=== PATIENT | female | born 1975 | race Two or more races ===

== ENCOUNTER → 2016-09-27 | Outpatient (CLI) | payer BC, OTHER ==
[~2016-09-27] MED LIST: LABE100T3 PO; PREN1TAB27 PO
--- NOTE | 2016-09-27 15:40 | RAD ---
DATE: 09/27/2016: EXAM: DIGITAL SCREEN BILAT W/CAD HISTORY: Routine screening COMPARISON: Baseline study This study was interpreted with the benefit of Computerized Aided Detection (CAD). FINDINGS: There are scattered fibroglandular densities in both breasts. There is a small area of asymmetrically increased density in the upper outer quadrant of the right breast compared to the left. The fibroglandular pattern is otherwise unremarkable. Minimal benign type calcification is present. No suspicious microcalcification is seen. Benign-appearing lymph node type densities are present in the axillary regions. IMPRESSION: Asymmetric right breast opacity. Diagnostic mammograms to include spot compression and rolled cc views are suggested for further evaluation. If an area of suspicion persists, sonographic evaluation would be indicated. BI-RADS CATEGORY: 0 INCOMPLETE: NEEDS ADDITIONAL IMAGING EVALUATION AND/OR PRIOR MAMMOGRAMS FOR COMPARISON. RECOMMENDED FOLLOW-UP: ADD ADDITIONAL IMAGING PQRS compliance statement: Patient information was entered into a reminder system with a target due date for the next mammogram. Mammography is a sensitive method for finding small breast cancers, but it does not detect them all and is not a substitute for careful clinical examination. A negative mammogram does not negate a clinically suspicious finding and should not result in delay in biopsying a clinically suspicious abnormality. "Our facility is accredited by the [employer] Mammography [employer]."
== END | disposition home or self-care (01) ==
LOC: MAMMO 14:57
PROVIDERS: ATTEND Family Medicine
DX: Z12.31 Encounter for screening mammogram for malignant neoplasm of breast (principal)
CPT/HCPCS: G0202; 77067

== ENCOUNTER → 2016-10-26 | Outpatient (CLI) | payer BC ==
--- NOTE | 2016-10-26 13:43 | RAD ---
DATE: 10/26/2016 EXAM: DIGITAL DIAGNOSTIC RT, BREAST RIGHT HISTORY: Suspicious screening study COMPARISON: 09/27/2016 This study was interpreted with the benefit of Computerized Aided Detection (CAD). FINDINGS: Additional views of the right breast were obtained and correlated with the screening images. There are patchy fibroglandular shadows in the upper outer quadrant. A discrete reproducible mass is not delineated. Right breast ultrasound, 09/27/2016: A targeted ultrasound exam of the upper outer quadrant of the right breast was performed. Heterogeneous fibroglandular shadows are present. No cystic or solid mass is seen. IMPRESSION: The mild mammographic asymmetry, right compared to the left, probably represents a normal variant in the fibroglandular pattern in this patient. Additional mammograms and targeted ultrasound did not demonstrate a mass. Mammographic surveillance beginning with right mammography in 6 months and bilateral mammography at one year is suggested to confirm stability. BI-RADS CATEGORY: 3 PROBABLY BENIGN FINDING(S)-SHORT INTERVAL FOLLOW-UP SUGGESTED RECOMMENDED FOLLOW-UP: 6M 6 MONTH FOLLOW-UP PQRS compliance statement: Patient information was entered into a reminder system with a target due date for the next mammogram. Mammography is a sensitive method for finding small breast cancers, but it does not detect them all and is not a substitute for careful clinical examination. A negative mammogram does not negate a clinically suspicious finding and should not result in delay in biopsying a clinically suspicious abnormality. "Our facility is accredited by the [employer] Mammography [employer]."
== END | disposition home or self-care (01) ==
LOC: MAMMO 13:00
PROVIDERS: ATTEND Family Medicine
DX: R92.8 Other abnormal and inconclusive findings on diagnostic imaging of breast (principal)
CPT/HCPCS: 76641; G0206; 77065

== ENCOUNTER → 2019-05-25 | Outpatient (CLI) | payer BC ==
[~2019-05-25] MED LIST changes: -LABE100T3 PO; +LABE100T5 PO
--- NOTE | 2019-05-27 17:36 | RAD ---
Study: 2-D diagnostic mammogram-bilateral History: Routine screening. Technique: Bilateral digital mammographic routine views were obtained with CAD - computer aided detection. Comparison: Most recent screening mammogram from 09/17/2016 Findings: Breast Tissue Density B :The breast tissue is composed of mixed fatty and fibroglandular tissue. There are no suspicious masses, microcalcifications or areas of architectural distortion. Impression: No findings concerning for malignancy within either breast. No significant interval change. BI-RADS Category 1: Negative. Normal interval followup. The patient will receive a letter with the results in the mail. Patient information is entered into the reminder system with a target due date for the next screening mammogram. The patient will receive a reminder. "Our facility is accredited by the [employer]ammography [employer]."
== END | disposition home or self-care (01) ==
LOC: MAMMO 12:53
PROVIDERS: ATTEND Family Medicine
DX: Z12.31 Encounter for screening mammogram for malignant neoplasm of breast (principal)
CPT/HCPCS: 77067

== ENCOUNTER → 2020-06-02 | Outpatient (CLI) | payer BC ==
--- NOTE | 2020-06-06 15:10 | RAD ---
BILATERAL SCREENING MAMMOGRAM, 3-D History: Routine screening. Comparison: 09/27/2016 and 05/25/2019. Technique: MLO and CC digital tomosynthesis (3D) images obtained. Radiologist reviewed these images on dedicated workstation. Findings: Breast Tissue Density B : There are scattered areas of fibroglandular density. There are no dominant masses, suspicious microcalcifications, or architectural distortion. IMPRESSION: No mammographic evidence of malignancy. Recommend routine screening. BI-RADS category 1: Negative. The images were reviewed with computer-aided detection. Patient information is entered into reminder system with a target due date for the next screening mammogram. Mammography is the most sensitive method for finding small breast cancers, but it does not detect them all and is not a substitute for careful clinical examination. A negative mammogram does not negate a clinically suspicious finding and should not result in delay in biopsying a clinically suspicious abnormality. "Our facility is accredited by the [employer] Mammography [employer]." Electronically signed by: Reji Waldrop MD (06/06/2020 3:07 PM) [id number]
== END ==
LOC: MAMMO 14:41
PROVIDERS: ATTEND Family Medicine
DX: Z12.31 Encounter for screening mammogram for malignant neoplasm of breast (principal)
CPT/HCPCS: 77063; 77067